=== PATIENT | male | born 1995 | race Caucasian/White ===

== ENCOUNTER 2020-04-07 14:36 | Emergency (ER) | payer OTHER, MEDICAID ==
[~2020-04-07] VITALS: Ht 182.9 cm; Wt 86.2 kg
[~2020-04-07 14:36] MED LIST: AUGMENTIN 875875 MG PO; IBUPROFEN 600600 M1 PO; TRAMADOL 50 MG50 MG PO
[2020-04-07 14:42] VITALS: BP 136/82
== END 2020-04-07 15:45 | disposition home or self-care (01) ==
LOC: M.ERS 14:36
DX: S61.215A Laceration without foreign body of left ring finger without damage to nail, initial encounter (principal); Z88.6 Allergy status to analgesic agent; W26.8XXA Contact with other sharp object(s), not elsewhere classified, initial encounter; Y93.89 Activity, other specified; Y92.89 Other specified places as the place of occurrence of the external cause; Y99.8 Other external cause status